=== PATIENT | female | born 1975 | race Two or more races ===

== ENCOUNTER 2016-07-19 09:02 | Emergency (ER) | payer OTHER ==
[2016-07-19 09:14] VITALS: BP 116/75; PULSE 76; RESP 16; TEMP 99; O2SAT 96
--- NOTE | 2016-07-19 09:22 | UCPHY ---
H & P Time Seen by Provider: 07/19/16 09:14 Patient Type: New HPI/ROS: This patient presents with a chief complaint of right eye irritation associated with redness and discharge. Symptoms were 1st noted yesterday with some mild redness and swelling but the discharge was 1st noticed this morning. She describes a sinus headache but otherwise has no upper respiratory symptoms including nasal congestion, fever or ear pain but she has noticed some sore throat. She denies any visual changes and denies actual pain. Smoking Status: Never smoked Physical Exam: This is a well-developed well-nourished female who is no acute distress. She is alert and lucid with normal mental status.++ Mouth and pharynx: There is some mild lymphoid hyperplasia without injection or exudate. Eyes: On the left there is some very minimal injection of the nasal conjunctiva. On the right the temporal conjunctiva is quite injected. There is no photophobia. There is some mild swelling of the upper and lower lids. Pupils are equal round reactive to light. Extraocular muscle function is intact. Constitutional: Initial Vital Signs Temperature (C) 37.2 C 07/19/16 09:11 Heart Rate 76 07/19/16 09:11 Respiratory Rate 16 07/19/16 09:11 Blood Pressure 116/75 07/19/16 09:11 O2 Sat (%) 96 07/19/16 09:11 O2 Delivery Mode Room Air Allergies/Adverse Reactions: No Known Allergies Allergy (Unverified 07/19/16 09:14) Home Medications: Medication Instructions Recorded Gentamicin 0.3% [Gentak 0.3%] 2 drops RTEYE Q4H #1 opht.btl 07/19/16 Medical Decision Making Differential Diagnosis: I find no evidence of foreign body, corneal abrasion or other explanation for her symptoms except conjunctivitis. Departure - Departure Disposition: Home, Routine, Self-Care Clinical Impression: Conjunctivitis Qualifiers: Conjunctivitis type: acute Acute conjunctivitis type: unspecified Laterality: right Qualifier Code: (H10.31) Unspecified acute conjunctivitis, right eye Condition: Good Instructions: Conjunctivitis (ED) Additional Instructions: If your symptoms have not improved in 4 or 5 days you should be re-evaluated. Prescriptions: Gentamicin 0.3% [Gentak 0.3%] 2 drops RTEYE Q4H #1 opht.btl - PQRS PQRS Measurement: Not applicable
== END 2016-07-19 09:26 | disposition home or self-care (01) ==
LOC: CED 09:02
DX: H10.31 Unspecified acute conjunctivitis, right eye (principal)
CPT/HCPCS: 99202-PO; G0463-PO

== ENCOUNTER → 2018-10-14 | Outpatient (CLI) | payer OTHER | LOC: FIMAGING 10:07 | PROVIDERS: ATTEND Physician Assistant Medical | DX: Z12.31 Encounter for screening mammogram for malignant neoplasm of breast (principal); Z80.3 Family history of malignant neoplasm of breast ==